=== PATIENT | female | born 1980 | race Caucasian/White ===

== ENCOUNTER → 2018-11-12 | Outpatient (CLI) | payer OTHER | LOC: MHCPAIN 10:36 | DX: G89.29 Other chronic pain (principal); M79.2 Neuralgia and neuritis, unspecified; M25.571 Pain in right ankle and joints of right foot | CPT/HCPCS: G0463 ==

== ENCOUNTER → 2022-02-07 | Outpatient (CLI) | payer OTHER | LOC: MHCPAIN 14:48 | DX: M53.3 Sacrococcygeal disorders, not elsewhere classified (principal); M47.817 Spondylosis without myelopathy or radiculopathy, lumbosacral region; M54.50 Low back pain, unspecified | CPT/HCPCS: G0463 ==